=== PATIENT | female | born 1935 | race African-American/Black ===

== ENCOUNTER 2022-09-18 12:14 | Emergency (ER) | payer OTHER ==
[~2022-09-18] VITALS: Ht 160 cm; Wt 65.0 kg
[2022-09-18] MEDS ORDERED: SODIUM CHLORIDE 0.9% 500 ML IV ONE (12:45)
[2022-09-18 13:35] LABS: HEMATOCRIT. 35.2 % (36.0-48.0); HEMOGLOBIN. 11.5 g/dL (12.0-16.0); MEAN CORPUSCULAR HEMOGLOBIN 28.4 pg (28.0-32.0); MEAN CORPUSCULAR VOLUME 86.6 fL (81.0-99.0); MEAN PLATELET VOLUME 9.3 fl (7.4-10.4); PLATELET 273 x1000/uL (130-400); RED BLOOD CELL COUNT 4.06 mill/uL (4.2-5.4); RED CELL DISTRIBUTION WIDTH 15.8 % (11.6-14.6)
[2022-09-18 13:44] LABS: INR 1.2
[2022-09-18 14:20] LABS: PLATELET ESTIMATE NORMAL
[2022-09-18] MEDS ORDERED: GUAIFENESIN-DM 200MG-20MG/10ML UDC PO ONE (14:30)
[2022-09-18 15:04] VITALS: BP 151/100
== END 2022-09-18 15:06 | disposition left against medical advice (07) ==
LOC: ER 14:38
DX: R55 Syncope and collapse (principal); E78.00 Pure hypercholesterolemia, unspecified; I25.2 Old myocardial infarction; I10 Essential (primary) hypertension; Z98.890 Other specified postprocedural states
CPT/HCPCS: 36415; 71045; 84484; 85025; 85379; 85610; 93005; 99285; J7040